=== PATIENT | male | born 1980 | race Caucasian/White ===

== ENCOUNTER 2017-12-12 11:24 | Emergency (ER) | payer BC ==
[~2017-12-12] VITALS: Ht 170.2 cm; Wt 101.2 kg
--- NOTE | 2017-12-12 11:37 | NUR ---
PATIENT WAS SEEN BY MD. REED HAWTHORNE PER DR MISHRA INSTRUCTIONS. DC, RX AND FOLLOW UP INSTRUCTIONS GIVEN AND EXPLAINED TO PATIENT WHO STATES HE UNDERSTANDS ALL INSTRUCTIONS.
== END 2017-12-12 11:39 | disposition home or self-care (01) ==
LOC: ER 11:24
DX: L60.0 Ingrowing nail (principal); E11.628 Type 2 diabetes mellitus with other skin complications; E03.9 Hypothyroidism, unspecified
CPT/HCPCS: A4663